=== PATIENT | female | born 1995 | race African-American/Black ===

== ENCOUNTER 2017-03-08 23:14 | Emergency (ER) | payer OTHER ==
[~2017-03-08] VITALS: Ht 157.5 cm; Wt 63.0 kg
[2017-03-08] MEDS ORDERED: CIPRO250 M1 PO (23:19)
[2017-03-08] MEDS ORDERED: AZITHROMYCIN 2250 MG PO (23:19)
[2017-03-08] MEDS ORDERED: EFFEXOR XR37.5 MG PO (23:20)
[2017-03-08] MEDS ORDERED: FLAGYL500 MG PO (23:20)
[2017-03-08] MEDS ORDERED: SEROQUEL 25 MG25 M1 PO (23:20)
[2017-03-08] MEDS ORDERED: TRAZODONE HCL50 MG PO (23:21)
[2017-03-09 03:39] LABS: HEMATOCRIT 35.8 % (37.0-47.0); MCH 27.7 pg (26.0-34.0); MCHC 33.6 g/dL (28.0-37.0); MCV 82.5 fL (80.0-100.0); PLATELET COUNT 242 thou/uL (150-400); RBC 4.34 mil/uL (4.20-5.00); RDW 13.4 % (10.5-14.5); WBC 10.1 thou/uL (4.0-11.0)
[2017-03-09 03:41] LABS: URINE BILIRUBIN NEGATIVE (Negative); URINE BLOOD TRACE (Negative); URINE COLOR YELLOW; URINE GLUCOSE-RANDOM* NEGATIVE (Negative); URINE KETONES NEGATIVE (Negative); URINE LEUKOCYTES-REFLEX TRACE (Negative); URINE PROTEIN (DIPSTICK) NEGATIVE (Negative); URINE SPECIFIC GRAVITY <= 1.005 (1.003-1.035); URINE UROBILINOGEN 0.2 E.U./dl (0.2-1.0)
[2017-03-09 03:44] LABS: MANUAL DIFF YES
[2017-03-09 03:48] LABS: CALCIUM 9.7 mg/dL (8.5-10.1); CREATININE 0.8 mg/dL (0.6-1.0); POTASSIUM 3.8 mmol/L (3.5-5.1)
[2017-03-09 04:05] LABS: ABSOLUTE NEUTROPHILS 8.8 thou/uL (1.4-8.2); TOTAL CELL COUNT 100
[2017-03-09 04:34] VITALS: BP 130/64
== END 2017-03-09 04:35 | disposition home or self-care (01) ==
LOC: ER 23:14
PROVIDERS: Emergency Medicine
DX: T37.3X1A Poisoning by other antiprotozoal drugs, accidental (unintentional), initial encounter (principal); F41.9 Anxiety disorder, unspecified; F17.210 Nicotine dependence, cigarettes, uncomplicated; Y92.9 Unspecified place or not applicable

== ENCOUNTER 2017-05-05 11:35 | Emergency (ER) | payer OTHER ==
[~2017-05-05] VITALS: Ht 157.5 cm; Wt 63.0 kg
[~2017-05-05 11:35] MED LIST: AZITHROMYCIN 2250 MG PO; CIPRO250 M1 PO; EFFEXOR XR37.5 MG PO; FLAGYL500 MG PO; SEROQUEL 25 MG25 M1 PO; TRAZODONE HCL50 MG PO
[2017-05-05 14:38] VITALS: BP 121/79
== END 2017-05-05 14:39 | disposition home or self-care (01) ==
LOC: ER 11:35
DX: Z53.21 Procedure and treatment not carried out due to patient leaving prior to being seen by health care provider (principal)

== ENCOUNTER 2017-10-01 15:08 | Emergency (ER) | payer OTHER ==
[~2017-10-01] VITALS: Ht 157.5 cm; Wt 61.2 kg
[~2017-10-01 15:08] MED LIST changes: +NAPROSYN500 M1 PO
[2017-10-01 15:45] LABS: URINE BILIRUBIN NEGATIVE (Negative); URINE BLOOD NEGATIVE (Negative); URINE COLOR YELLOW; URINE GLUCOSE-RANDOM* NEGATIVE (Negative); URINE KETONES NEGATIVE (Negative); URINE SPECIFIC GRAVITY 1.015 (1.005-1.035); URINE UROBILINOGEN 0.2 E.U./dl (0.2-1.0)
[2017-10-01 15:48] LABS: URINE LEUKOCYTES-REFLEX TRACE (Negative)
[2017-10-01 15:52] LABS: HEMATOCRIT 36.1 % (37.0-47.0); MCH 27.8 pg (26.0-34.0); MCHC 33.4 g/dL (28.0-37.0); MCV 83.3 fL (80.0-100.0); RBC 4.33 mil/uL (4.20-5.00); RDW 12.8 % (10.5-14.5); WBC 10.7 thou/uL (4.0-11.0)
[2017-10-01 16:00] LABS: CALCIUM 9.8 mg/dL (8.5-10.1); CREATININE 0.8 mg/dL (0.6-1.0); POTASSIUM 3.7 mmol/L (3.5-5.1)
[2017-10-01 16:06] LABS: ALBUMIN 3.8 g/dL (3.4-5.0); TOTAL BILIRUBIN 0.3 mg/dL (<0.1-1.0); TOTAL PROTEIN 8.4 g/dL (6.4-8.2)
[2017-10-01 16:10] LABS: SSA (PROTEIN CONFIRMATORY) NEGATIVE (Negative); URINE PROTEIN (DIPSTICK) NEGATIVE (Negative)
[2017-10-01] MEDS ORDERED: MIRALAX17 GM PO (16:17)
[2017-10-01] MEDS ORDERED: KEFLEX500 M1 PO (16:17)
[2017-10-01] MEDS ORDERED: SENNA S TABLET1 EACH PO (16:17)
[2017-10-01 16:36] VITALS: BP 114/67
== END 2017-10-01 16:42 | disposition home or self-care (01) ==
LOC: ER 15:08
PROVIDERS: Emergency Medicine
DX: N39.0 Urinary tract infection, site not specified (principal); F17.210 Nicotine dependence, cigarettes, uncomplicated